=== PATIENT | male | born 1955 | race Caucasian/White ===

== ENCOUNTER 2021-03-23 06:23 | Day surgery (SDC) | payer MEDICARE, BC ==
[~2021-03-23] VITALS: Ht 182.9 cm; Wt 131.0 kg
[2021-03-23] MEDS ORDERED: METF10007 PO (06:45)
[2021-03-23] MEDS ORDERED: IV RINGERS,LACTATED 1000ML 1,000 ML IV SCH (06:45)
[2021-03-23] MEDS ORDERED: PROPOFOL 10 MG/ML (20ML) VIAL. IV ONE ×2 (06:54→08:18)
[2021-03-23 06:56] VITALS: BP 147/90
[2021-03-23] MEDS ORDERED: PREG150C PO (07:06)
[2021-03-23] MEDS ORDERED: CRESTOR5 MG PO (07:06)
[2021-03-23] MEDS ORDERED: METO50TA4 PO (07:06)
[2021-03-23] MEDS ORDERED: LISI2.5T12 PO (07:06)
[2021-03-23] MEDS ORDERED: SEMA0.25 SQ (07:06)
[2021-03-23] MEDS ORDERED: HYDR-2769 PO (07:06)
[2021-03-23 08:37] VITALS: BP 130/79
--- NOTE | 2021-03-28 11:08 | PATHOLOGY ---
[facility] Accession Number: [id number] . 01 Material submitted: . esophagus - DISTAL ESOPHAGUS BIOPSY. Modifiers: distal . 01 Clinical history: . DYSPHAGIA/ANEMIA EGD/COLON ESOPHAGEAL MASS . 02 Diagnosis: Esophageal biopsies, distal esophagus: - Adenocarcinoma, moderately-well differentiated. See comment. (JPM:pit; 03/28/2021) [facility] 03/28/2021 0943 Local . 02 Comment: Sections of the distal esophageal biopsy reveal a malignant epithelial neoplasm. The latter is composed of crowded malignant glands which infiltrate a reactive stroma. This is associated with focal ulceration. There are dysplastic glands which are contiguous with and focally undermine portions of squamous esophageal mucosa. The findings are supportive of the diagnosis of a moderately-well differentiated adenocarcinoma. The case is also examined by Dr. Arriola on 03/27/21. She concurs with the diagnosis. The results are reported to Dr. Balbuena 03/28/2021 at 10:00 AM. (JPM:[facility]; 03/28/2021) . 02 Electronically signed: . Valente New MD, Pathologist NPI- [id number] . 01 Gross description: . Received in formalin labeled "Vickers, Bonilla, distal esophagus BX" are multiple schulte-brown soft tissue fragments measuring in aggregate 1.4 x 0.3 x 0.1 cm. The specimen is submitted entirely in A1. ([facility]; 03/24/2021) [facility] 03/24/2021 1124 Local . 02 Pathologist provided ICD-10: C15.5 . 02 CPT . 198456 Specimen Comment: A courtesy copy of this report has been sent to [phone], [phone] Specimen Comment: [id number] Specimen Comment: Report sent to / DR BALBUENA Performed at: [address] [facility] [address], [place], [place] [id number] MD Junaid Correia MD Phone: [phone] Performed at: 02 [facility] [place] [address] [place], [place] [id number] MD Valente New MD Phone: [phone]
== END 2021-03-23 08:45 | disposition home or self-care (01) ==
LOC: ENDOS 06:23
PROVIDERS: ATTEND Internal Medicine Gastroenterology
DX: D50.9 Iron deficiency anemia, unspecified (principal); R13.14 Dysphagia, pharyngoesophageal phase; C15.5 Malignant neoplasm of lower third of esophagus; E66.3 Overweight; D49.0 Neoplasm of unspecified behavior of digestive system; K64.0 First degree hemorrhoids; K63.89 Other specified diseases of intestine; K31.89 Other diseases of stomach and duodenum; E78.00 Pure hypercholesterolemia, unspecified; K21.9 Gastro-esophageal reflux disease without esophagitis; I12.9 Hypertensive chronic kidney disease with stage 1 through stage 4 chronic kidney disease, or unspecified chronic kidney disease; E11.22 Type 2 diabetes mellitus with diabetic chronic kidney disease; N18.2 Chronic kidney disease, stage 2 (mild); M19.90 Unspecified osteoarthritis, unspecified site; F32.9 Major depressive disorder, single episode, unspecified; G47.30 Sleep apnea, unspecified; Z85.828 Personal history of other malignant neoplasm of skin; Z79.84 Long term (current) use of oral hypoglycemic drugs; Z79.899 Other long term (current) drug therapy; Z98.890 Other specified postprocedural states; Z87.891 Personal history of nicotine dependence
CPT/HCPCS: 43239; 45378; J2704